=== PATIENT | female | born 1980 | race Caucasian/White ===

== ENCOUNTER 2022-01-12 23:33 | Inpatient (IN) | payer BC ==
[~2022-01-12] VITALS: Ht 170.2 cm; Wt 102.1 kg
[2022-01-13] VITALS (9 sets, daily range): BP systolic 93–113; BP diastolic 51–70
[2022-01-13] MEDS ORDERED: ONDANSETRON HCL INJ 2MG/ML 2ML 2 MG/ML VIAL IV STA ×2 (00:01→01:57)
[2022-01-13] MEDS ORDERED: KETOROLAC TROMETHAMINE 30 MG/ML VIAL IV STA (00:01)
[2022-01-13] MEDS ORDERED: FENTANYL CITRATE/PF 100MCG/2 ML INJ IV ONE (00:15)
[2022-01-13] MEDS ORDERED: SODIUM CHLORIDE 0.9% 1000ML 1,000 ML ONE (00:21)
[2022-01-13 00:31] LABS: BASOPHILS # (AUTO) 0.1 (0.0-0.1); BASOPHILS % 0.7 % (0.0-1.0); EOSINOPHILS # (AUTO) 0.1 (0.0-0.4); EOSINOPHILS % 0.6 % (0.0-6.0); HEMATOCRIT 31.3 % (34.2-44.1); HEMOGLOBIN 8.7 g/dL (12.0-16.0); LYMPHOCYTES # (AUTO) 1.2 (1.0-3.2); LYMPHOCYTES % 11.9 % (18.0-39.1); MEAN CORPUSCULAR HEMOGLOBIN 19.3 pg (28-32); MEAN CORPUSCULAR HGB CONC 27.8 g/dL (31-35); MEAN CORPUSCULAR VOLUME 69.6 fL (81-99); MONOCYTES # (AUTO) 0.2 (0.2-0.8); MONOCYTES % 2.3 % (4.4-11.3); NEUTROPHILS # (AUTO) 8.3 (2.1-6.9); PLATELET COUNT 418 x10e3/uL (140-360); RED CELL DISTRIBUTION WIDTH 19.1 % (11.7-14.4)
[2022-01-13 00:45] LABS: ALBUMIN 3.5 g/dL (3.5-5.0); ALBUMIN/GLOBULIN RATIO 0.8 (0.8-2.0); CALCIUM 9.5 mg/dL (8.4-10.2); CREATININE, SERUM 0.96 mg/dL (0.57-1.11)
[2022-01-13 00:56] LABS: ANION GAP 11.9 mmol/L (8-16); POTASSIUM 3.9 mmol/L (3.5-5.1)
[2022-01-13 01:33] LABS: CLARITY,URINE CLEAR (CLEAR); COLOR,URINE YELLOW (YELLOW); KETONES,URINE NEGATIVE (NEGATIVE); LEUKOCYTE ESTERASE ,URINE NEGATIVE (NEGATIVE); NITRITE,URINE NEGATIVE (NEGATIVE); PROTEIN,URINE DIPSTICK NEGATIVE (NEGATIVE); RBC,URINE 0-5 /HPF (0-5); URINE UROBILINOGEN 0.2 mg/dL (0.2 - 1)
[2022-01-13 01:48] LABS: BACTERIA,URINE MODERATE /HPF; EPITHELIAL CELLS,URINE FEW /LPF
[2022-01-13] MEDS ORDERED: Morphine 4mg Syringe 4 MG/ML INJ IV ONE (02:00)
[2022-01-13] MEDS ORDERED: CEFTRIAXONE 1 GM VIAL IV ONE (03:15)
[2022-01-13] MEDS: SODIUM CHLORIDE 0.9% 1000ML 1,000 ML IV SCH ×2 (03:30→20:42)
[2022-01-13] MEDS ORDERED: SODIUM CHLORIDE 0.9% 50ML 50 ML ONE (03:30)
[2022-01-13] MEDS ORDERED: Morphine 4mg Syringe 4 MG/ML INJ IV PRN (03:30)
[2022-01-13] MEDS ORDERED: CEFTRIAXONE 1 GM VIAL ONE (03:30)
[2022-01-13] MEDS ORDERED: CEFTRIAXONE 1 GM in SODIUM CHLORIDE 0.9% 50ML 50 ML IV ONE (03:30)
[2022-01-13] MEDS ORDERED: SODIUM CHLORIDE 0.9% 1000ML 1,000 ML IV ONE (04:00)
[2022-01-13] MEDS ORDERED: DOCUSATE SODIUM 100 MG CAP PO PRN (08:30)
[2022-01-13 08:57] LABS: CHOL/HDL RATIO 3.1 (3.0-3.6)
[2022-01-13] MEDS: ACETAMINOPHEN 325 MG TAB PO PRN (16:08)
[2022-01-13] MEDS ORDERED: ENOXAPARIN SOD INJ 40 MG/0.4 ML SYR SC SCH (17:00)
[2022-01-13] MEDS: ONDANSETRON HCL INJ 2MG/ML 2ML 2 MG/ML VIAL IV PRN (20:42)
[2022-01-14] VITALS (7 sets, daily range): BP systolic 98–149; BP diastolic 59–90
[2022-01-14 06:40] LABS: ANION GAP 9.4 mmol/L (8-16); CALCIUM 8.3 mg/dL (8.4-10.2); CREATININE, SERUM 0.77 mg/dL (0.57-1.11); POTASSIUM 3.4 mmol/L (3.5-5.1)
[2022-01-14] MEDS: SODIUM CHLORIDE 0.9% 1000ML 1,000 ML IV SCH ×3 (06:48→20:03)
[2022-01-14 07:46] LABS: BASOPHILS % 0.3 % (0.0-1.0); EOSINOPHILS % 0.2 % (0.0-6.0); HEMATOCRIT 23.1 % (34.2-44.1); LYMPHOCYTES # (AUTO) 1.1 (1.0-3.2); MEAN CORPUSCULAR HEMOGLOBIN 19.5 pg (28-32); MEAN CORPUSCULAR HGB CONC 28.1 g/dL (31-35); MEAN CORPUSCULAR VOLUME 69.2 fL (81-99); MONOCYTES # (AUTO) 1.1 (0.2-0.8); MONOCYTES % 8.3 % (4.4-11.3); NEUTROPHILS # (AUTO) 10.9 (2.1-6.9); NEUTROPHILS % 81.9 % (38.7-80.0); PLATELET COUNT 260 x10e3/uL (140-360); RED BLOOD COUNT 3.34 x10e6/uL (3.6-5.1); RED CELL DISTRIBUTION WIDTH 19.2 % (11.7-14.4)
[2022-01-14 08:00] LABS: HEMOGLOBIN 6.5 g/dL (12.0-16.0)
[2022-01-14 08:30] LABS: HEMOGLOBIN 7.4 g/dL (12.0-16.0)
[2022-01-14] MEDS: ACETAMINOPHEN 325 MG TAB PO PRN ×2 (08:57→19:58)
[2022-01-14] MEDS: CEFTRIAXONE 1 GM in SODIUM CHLORIDE 0.9% 50ML 50 ML IV SCH (08:59)
[2022-01-14] MEDS: ONDANSETRON HCL INJ 2MG/ML 2ML 2 MG/ML VIAL IV PRN (09:06)
[2022-01-14] MEDS ORDERED: GUAIFENESIN/DEXTROMETHORPHAN LIQD 5 ML UDC NG PRN (09:45)
[2022-01-14 10:54] LABS: BAND NEUTROPHILS % (MANUAL) 2 %; HYPOCHROMASIA MODERATE; LYMPHOCYTES % (MANUAL) 6 % (19-48); MICROCYTOSIS MODERATE; MONOCYTES % (MANUAL) 8 % (3.4-9.0); NEUTROPHILS % (MANUAL) 84 % (40-74); PLATELET ESTIMATE ADEQUATE; PLATELET MORPHOLOGY COMMENT NORMAL; RBC MORPHOLOGY COMMENT NORMAL
[2022-01-14] MEDS: BENZONATATE 100 MG CAP PO SCH ×2 (15:39→19:58)
[2022-01-15] VITALS (7 sets, daily range): BP systolic 140–157; BP diastolic 88–99
[2022-01-15] MEDS: SODIUM CHLORIDE 0.9% 1000ML 1,000 ML IV SCH (04:09)
[2022-01-15 08:02] LABS: BASOPHILS % 0.4 % (0.0-1.0); EOSINOPHILS # (AUTO) 0.1 (0.0-0.4); EOSINOPHILS % 0.8 % (0.0-6.0); HEMATOCRIT 25.1 % (34.2-44.1); HEMOGLOBIN 7.1 g/dL (12.0-16.0); LYMPHOCYTES # (AUTO) 1.2 (1.0-3.2); LYMPHOCYTES % 11.2 % (18.0-39.1); MEAN CORPUSCULAR HEMOGLOBIN 19.5 pg (28-32); MEAN CORPUSCULAR HGB CONC 28.3 g/dL (31-35); MEAN CORPUSCULAR VOLUME 68.8 fL (81-99); MONOCYTES # (AUTO) 0.9 (0.2-0.8); MONOCYTES % 8.1 % (4.4-11.3); NEUTROPHILS # (AUTO) 8.3 (2.1-6.9); NEUTROPHILS % 78.8 % (38.7-80.0); PLATELET COUNT 273 x10e3/uL (140-360); RED BLOOD COUNT 3.65 x10e6/uL (3.6-5.1)
[2022-01-15 08:17] LABS: ANION GAP 9.5 mmol/L (8-16); CALCIUM 8.8 mg/dL (8.4-10.2); CREATININE, SERUM 0.75 mg/dL (0.57-1.11); POTASSIUM 3.5 mmol/L (3.5-5.1)
[2022-01-15] MEDS ORDERED: MULTIVITAMINS1 EAC6 PO (09:10)
[2022-01-15] MEDS ORDERED: ONDANSETRON ODT4 MG PO (09:10)
[2022-01-15] MEDS ORDERED: CEPHALEXIN500 MG PO (09:10)
[2022-01-15] MEDS ORDERED: PANTOPRAZOLE SO40 MG PO (09:10)
[2022-01-15] MEDS ORDERED: ACETAMINOPHEN325 M1 PO (09:10)
[2022-01-15] MEDS ORDERED: SODIUM CHLORIDE 0.9% 250ML 250 ML IV ONE (09:30)
[2022-01-15] MEDS: BENZONATATE 100 MG CAP PO SCH ×2 (09:35→15:12)
[2022-01-15] MEDS: CEFTRIAXONE 1 GM in SODIUM CHLORIDE 0.9% 50ML 50 ML IV SCH (09:36)
[2022-01-15 09:50] LABS: FERRITIN 12.88 ng/mL (4.63-204.00)
[2022-01-15 10:01] LABS: BAND NEUTROPHILS % (MANUAL) 1 %; LYMPHOCYTES % (MANUAL) 6 % (19-48); MONOCYTES % (MANUAL) 3 % (3.4-9.0); NEUTROPHILS % (MANUAL) 90 % (40-74); PLATELET ESTIMATE ADEQUATE; PLATELET MORPHOLOGY COMMENT NORMAL; RBC MORPHOLOGY COMMENT NORMAL
[2022-01-15] MEDS ORDERED: SODIUM CHLORIDE 0.9% 250ML 250 ML ONE (16:07)
== END 2022-01-15 20:41 | disposition home or self-care (01) | DRG 872 ==
LOC: ER 01-13 00:02 → ERHOLD 01-13 04:18 → MED/SURG3 01-13 04:33 → OBSVTOIN 01-14 08:21
PROVIDERS: ADMIT Internal Medicine; ATTEND Internal Medicine
PROC: 3E03329 Introduction of Other Anti-infective into Peripheral Vein, Percutaneous Approach (ICD-10-PCS; 2022-01-14)
PROC: 30233N1 Transfusion of Nonautologous Red Blood Cells into Peripheral Vein, Percutaneous Approach (ICD-10-PCS; principal; 2022-01-15)
DX: A41.9 Sepsis, unspecified organism (principal); N13.6 Pyonephrosis; N12 Tubulo-interstitial nephritis, not specified as acute or chronic; E87.2 Acidosis; R65.20 Severe sepsis without septic shock; B96.89 Other specified bacterial agents as the cause of diseases classified elsewhere; E66.9 Obesity, unspecified; Z68.35 Body mass index [BMI] 35.0-35.9, adult; D64.9 Anemia, unspecified; Z20.822 Contact with and (suspected) exposure to COVID-19; Q63.9 Congenital malformation of kidney, unspecified
CPT/HCPCS: 36415; 71045; 74176; 76830; 76856; 80048; 80053; 80061; 81001; 82607; 82728; 83036; 83540; 83605; 84466; 84702; 85014; 85018; 85025; 86850; 86900; 86920; 87086; 94799; 96361; 99284; G0378; J0696; J1650; J1885; J2270; J2405; J3010; J7030; J7050; P9016; U0002